=== PATIENT | female | born 1995 | race Hispanic/Latino ===

== ENCOUNTER 2022-11-12 12:54 | Emergency (ER) | payer OTHER ==
[~2022-11-12] VITALS: Ht 167.6 cm; Wt 118.8 kg
[2022-11-12 14:26] LABS: BASOPHILS % (AUTO) 0.3 % (0.0-5.0); EOSINOPHILS % (AUTO) 0.4 % (0.0-8.0); HEMATOCRIT 34.6 % (36-48); LYMPHOCYTES % (AUTO) 21.3 % (21.0-51.0); MEAN CORPUSCULAR HEMOGLOBIN 31.8 pg (27.0-33.0); MEAN CORPUSCULAR VOLUME 90.8 fL (79-99); MONOCYTES % (AUTO) 4.5 % (3.0-13.0); PLATELET COUNT (AUTO) 260 K/uL (130-400); RED BLOOD CELL COUNT(AUTO) 3.81 MIL/uL (4.00-5.50); RED CELL DISTRIBUTION WIDTH 13.6 % (11.0-15.5); WHITE BLOOD COUNT (AUTO) 10.6 K/uL (4.8-10.8)
[2022-11-12 14:29] LABS: APPEARANCE,URINE CLEAR (CLEAR); BILIRUBIN,URINE NEGATIVE (NEGATIVE); COLOR,URINE COLORLESS (YELLOW); GLUCOSE, URINE (UA) NEGATIVE (NEGATIVE); KETONES,URINE NEGATIVE (NEGATIVE); LEUKOCYTE ESTERASE ,URINE NEGATIVE Leu/uL (NEGATIVE); NITRATE,URINE NEGATIVE (NEGATIVE); OCCULT BLOOD,URINE NEGATIVE (NEGATIVE); PROTEIN,URINE NEGATIVE (NEGATIVE); UROBILINOGEN,URINE 0.2 mg/dL (0.2-1.0)
[2022-11-12] MEDS ORDERED: ACETAMINOPHEN 500 MG TABLET PO ONE (14:30)
[2022-11-12 14:40] LABS: CREATININE 0.6 mg/dL (0.5-1.5); POTASSIUM 3.6 mmol/L (3.5-5.1)
[2022-11-12 14:44] LABS: ALBUMIN 2.5 g/dL (3.5-5.0); TOTAL PROTEIN, SERUM 7.1 g/dL (6.0-8.3)
[2022-11-12] MEDS ORDERED: ACET-66 PO (15:48)
[2022-11-12 15:50] VITALS: BP 128/74
== END 2022-11-12 15:57 | disposition home or self-care (01) ==
LOC: EDH 12:54
DX: O26.891 Other specified pregnancy related conditions, first trimester (principal); R10.30 Lower abdominal pain, unspecified; Z3A.17 17 weeks gestation of pregnancy; Z90.49 Acquired absence of other specified parts of digestive tract
CPT/HCPCS: 36415; 76810; 80053; 81003; 84702; 85025

== ENCOUNTER 2024-07-14 16:18 | Emergency (ER) | payer SELFPAY ==
[~2024-07-14] VITALS: Ht 165.1 cm; Wt 136.5 kg
[~2024-07-14 16:18] MED LIST: ACET-66 PO
[2024-07-14 17:37] LABS: BILIRUBIN,URINE NEGATIVE (NEGATIVE); COLOR,URINE YELLOW (YELLOW); GLUCOSE, URINE (UA) NEGATIVE (NEGATIVE); KETONES,URINE 5 mg/dL (NEGATIVE); LEUKOCYTE ESTERASE ,URINE 75 Leu/uL (NEGATIVE); NITRATE,URINE NEGATIVE (NEGATIVE); OCCULT BLOOD,URINE NEGATIVE (NEGATIVE); PROTEIN,URINE 10 mg/dL (NEGATIVE); UROBILINOGEN,URINE 0.2 mg/dL (0.2-1.0)
[2024-07-14 17:38] LABS: ADD UA MICROSCOPIC YES; APPEARANCE,URINE HAZY (CLEAR)
[2024-07-14 17:41] LABS: BACTERIA,URINE RARE /HPF (None Seen); MUCUS,URINE RARE LPF (None Seen); SQUAMOUS EPITHELIAL CELL,UR MOD /HPF (0-2)
[2024-07-14 18:16] LABS: BASOPHILS # (AUTO) 0.03 K/uL (0.00-0.20); BASOPHILS % (AUTO) 0.3 % (0.0-5.0); EOSINOPHILS # (AUTO) 0.07 K/uL (0.00-0.70); EOSINOPHILS % (AUTO) 0.7 % (0.0-8.0); HEMATOCRIT 34.4 % (36-48); IMMATURE GRANULOCYTE ABSOLUTE 0.05 K/uL (0-1); LYMPHOCYTES # (AUTO) 2.5 K/uL (1.0-4.8); LYMPHOCYTES % (AUTO) 25.5 % (21.0-51.0); MEAN CORPUSCULAR HEMOGLOBIN 30.6 pg (27.0-33.0); MEAN CORPUSCULAR HGB CONC 34.6 g/dL (32.0-36.0); MEAN CORPUSCULAR VOLUME 88.4 fL (79-99); MONOCYTES # (AUTO) 0.5 K/uL (0.1-1.0); MONOCYTES % (AUTO) 5.1 % (3.0-13.0); NEUTROPHILS # (AUTO) 6.6 K/uL (1.8-7.7); NEUTROPHILS % (AUTO) 67.9 % (40.0-77.0); PLATELET COUNT (AUTO) 234 K/uL (130-400); RED BLOOD CELL COUNT(AUTO) 3.89 MIL/uL (4.00-5.50); RED CELL DISTRIBUTION WIDTH 13.6 % (11.0-15.5); WHITE BLOOD COUNT (AUTO) 9.7 K/uL (4.8-10.8)
[2024-07-14 18:24] LABS: CREATININE 0.6 mg/dL (0.5-1.0); POTASSIUM 3.6 mmol/L (3.5-5.1)
[2024-07-14] MEDS ORDERED: CEPH250 PO (19:13)
[2024-07-14] MEDS: acetaMINOPHEN 500 MG TABLET PO ONE (19:16)
[2024-07-14] MEDS: cefTRIAXone 1G VIAL IM ONE (19:17)
[2024-07-14 19:31] VITALS: BP 134/62; PULSE 88; RESP 18; TEMP 97.9; O2SAT 97
== END 2024-07-14 19:33 | disposition home or self-care (01) ==
LOC: EDH 16:18
DX: O26.892 Other specified pregnancy related conditions, second trimester (principal); S39.012A Strain of muscle, fascia and tendon of lower back, initial encounter; R10.2 Pelvic and perineal pain; O23.42 Unspecified infection of urinary tract in pregnancy, second trimester; N39.0 Urinary tract infection, site not specified; Z3A.14 14 weeks gestation of pregnancy; Z90.49 Acquired absence of other specified parts of digestive tract; X58.XXXA Exposure to other specified factors, initial encounter; Y93.89 Activity, other specified; Y92.89 Other specified places as the place of occurrence of the external cause; Y99.8 Other external cause status
CPT/HCPCS: 99285; 76805; 80048; 84702; 85025; 87086; 81001; 36415; 96372; J0696

== ENCOUNTER 2024-08-15 18:43 | Observation (INO) | payer SELFPAY ==
[~2024-08-15] VITALS: Ht 165.1 cm; Wt 136.5 kg
[~2024-08-15 18:43] MED LIST changes: +CEPH250 PO
[2024-08-15 19:35] LABS: ADD UA MICROSCOPIC NO; APPEARANCE,URINE CLEAR (CLEAR); BILIRUBIN,URINE NEGATIVE (NEGATIVE); COLOR,URINE LIGHT-YELLOW (YELLOW); GLUCOSE, URINE (UA) NEGATIVE (NEGATIVE); KETONES,URINE NEGATIVE (NEGATIVE); LEUKOCYTE ESTERASE ,URINE NEGATIVE Leu/uL (NEGATIVE); NITRATE,URINE NEGATIVE (NEGATIVE); OCCULT BLOOD,URINE NEGATIVE (NEGATIVE); PH,URINE 5.5 (5.0-8.0); PROTEIN,URINE NEGATIVE (NEGATIVE); UROBILINOGEN,URINE 0.2 mg/dL (0.2-1.0)
[2024-08-15 19:59] LABS: BASOPHILS # (AUTO) 0.03 K/uL (0.00-0.20); BASOPHILS % (AUTO) 0.3 % (0.0-5.0); EOSINOPHILS # (AUTO) 0.09 K/uL (0.00-0.70); EOSINOPHILS % (AUTO) 0.8 % (0.0-8.0); HEMATOCRIT 36.5 % (36-48); IMMATURE GRANULOCYTE ABSOLUTE 0.08 K/uL (0-1); LYMPHOCYTES # (AUTO) 2.5 K/uL (1.0-4.8); LYMPHOCYTES % (AUTO) 22.3 % (21.0-51.0); MEAN CORPUSCULAR HEMOGLOBIN 31.1 pg (27.0-33.0); MEAN CORPUSCULAR HGB CONC 33.7 g/dL (32.0-36.0); MEAN CORPUSCULAR VOLUME 92.4 fL (79-99); MONOCYTES # (AUTO) 0.5 K/uL (0.1-1.0); MONOCYTES % (AUTO) 4.7 % (3.0-13.0); NEUTROPHILS # (AUTO) 7.8 K/uL (1.8-7.7); NEUTROPHILS % (AUTO) 71.2 % (40.0-77.0); PLATELET COUNT (AUTO) 240 K/uL (130-400); RED BLOOD CELL COUNT(AUTO) 3.95 MIL/uL (4.00-5.50); RED CELL DISTRIBUTION WIDTH 13.7 % (11.0-15.5)
--- NOTE | 2024-08-15 20:11 | ERN ---
ED Note History of Present Illness Stated Complaint: 19 WKS PREG, VAGINAL DISCOMFORT Chief Complaint: OB<20 weeks gest. Time Seen by MD: 18:44 Time Seen by Midlevel: 18:44 Dictation: The patient is a 29-year-old female with history of , who presents to the emergency department with complaints of a week of clear vaginal discharge and suprapubic pressure onset two days ago. Patient reports being 19 weeks , patient is doctor Arthur Webb. G 4. Denies any fevers, vomiting, diarrhea, constipation, vaginal bleeding Allergies: Coded Allergies: No Known Allergies (Unverified Allergy, Unknown, 11/12/22) Home Meds Active Scripts Cephalexin Monohydrate (Keflex) 250 Mg Cap, 1 CAP PO QID for 7 Days, #28 CAP 0 Refills Prov:TERRIE DE LOS SANTOS 07/14/24 Acetaminophen (Acetaminophen) 500 Mg Tablet, 500 MG PO Q4PRN for 5 Days, #15 TAB Prov:DENZEL ANDREWS 11/12/22 Past Medical History Past Medical History: Hypertension Surgical History: Cholecystectomy, LMP: Apr 02, 2024 : 4 Para: 3 Aborts: 1 RN Note Reviewed/Agreed w/PFSH: Yes Review of System Dictation Constitutional: Negative for fever,chills, and weight loss Eyes: Negative for injury, pain,redness, and discharge ENT: Negative for injury,pain or swelling Cardiovascular: Negative for chest pain, palpitations, and edema Respiratory: Negative for shortness of breath, cough, and wheezing, Abdomen/GI: Negative for nausea, vomiting, diarrhea, and constipation suprapubic pain Back: Negative for injury and pain : Negative for injury, bleeding and discharge . Clear discharge MS/Extremity: Negative for injury and deformity Skin: Negative for rash, and discoloration Neuro: Negative for headache, weakness, numbness, tingling, and seizure Psych: Negative for suicide ideation, homicidal ideation, and hallucinations Initial Vital Sign VS Vital Signs Date Time Temp Pulse Resp B/P (MAP) Pulse Ox O2 Delivery O2 Flow Rate FiO2 08/15/24 19:07 98.2 89 20 128/78 97 08/15/24 20:05 Room Air* 0 21 Physical Exam Dictation General: awake, alert, NAD Head/Face: Normocephalic, atraumatic Eyes: PERRL, EOMI, vision at baseline ENT: oral cavity clear, TMs clear, no signs of infection Neck: Trachea midline, supple, no nuchal rigidity Cardiovascular: RRR, normal S1/S2, No MRGs, no JVD Respiratory: CTAB, no respiratory distress, No rales or wheezes Abdomen: Soft, non-tender, non-distended, normal bowel sounds, no guarding or rebound. Skin: Warm, dry, normal turgor, no rash MS/Extremity: Pulses equal, no cyanosis, neurovascular intact, FROM Neuro: COAx4, GCS 15, strength 5/5, CN 2-12 intact, normal cerebellar exam, normal gait, Psych: Normal behavior, mood, and affect normal Results (Laboratory/Radiology) Laboratory/Radiology Laboratory Tests Test 08/15/24 19:20 08/15/24 19:47 Urine Color LIGHT-YELLOW (YELLOW) Urine Appearance CLEAR (CLEAR) Urine pH 5.5 (5.0-8.0) Urine Specific Cullen 1.025 (1.001-1.031) Urine Protein NEGATIVE mg/dL (NEGATIVE) Urine Glucose (UA) NEGATIVE mg/dL (NEGATIVE) Urine Ketones NEGATIVE mg/dL (NEGATIVE) Urine Occult Blood NEGATIVE (NEGATIVE) Urine Nitrate NEGATIVE (NEGATIVE) Urine Bilirubin NEGATIVE mg/dL (NEGATIVE) Urine Urobilinogen 0.2 mg/dL (0.2-1.0) Urine Leukocyte Esterase NEGATIVE Ciara/uL White Blood Count 11.0 K/uL (4.8-10.8) H Red Blood Count 3.95 MIL/uL (4.00-5.50) L Hemoglobin 12.3 g/dL (12.0-16.0) Hematocrit 36.5 % (36-48) Mean Corpuscular Volume 92.4 fL (79-99) Mean Corpuscular Hemoglobin 31.1 pg (27.0-33.0) Mean Corpuscular Hemoglobin Concent 33.7 g/dL (32.0-36.0) Red Cell Distribution Width 13.7 % (11.0-15.5) Platelet Count 240 K/uL (130-400) Mean Platelet Volume 11.6 fL (7.5-10.5) H Immature Granulocyte % (Auto) 0.7 % (0-1) Neutrophils (%) (Auto) 71.2 % (40.0-77.0) Lymphocytes (%) (Auto) 22.3 % (21.0-51.0) Monocytes (%) (Auto) 4.7 % (3.0-13.0) Eosinophils (%) (Auto) 0.8 % (0.0-8.0) Basophils (%) (Auto) 0.3 % (0.0-5.0) Neutrophils # (Auto) 7.8 K/uL (1.8-7.7) H Lymphocytes # (Auto) 2.5 K/uL (1.0-4.8) Monocytes # (Auto) 0.5 K/uL (0.1-1.0) Eosinophils # (Auto) 0.09 K/uL (0.00-0.70) Basophils # (Auto) 0.03 K/uL (0.00-0.20) Absolute Immature Granulocyte (auto 0.08 K/uL (0-1) Nucleated Red Blood Cells 0.0 % (0.0-0.19) Sodium Level 134 mmol/L (136-145) L Potassium Level 3.4 mmol/L (3.5-5.1) L Chloride Level 100 mmol/L (101-111) L Carbon Dioxide Level 26 mmol/L (21-32) Blood Urea Nitrogen 9 mg/dL (7-18) Creatinine 0.7 mg/dL (0.5-1.0) Glomerular Filtration Rate Calc 121 mL/min (>90) Random Glucose 90 mg/dL (70-105) Total Calcium 8.9 mg/dL (8.5-10.1) Human Chorionic Gonadotropin, Quant 38786 mIU/mL (0-5) H REASON: VAGINAL BLEEDING ORDERING PHYSICIAN: FLACA JOHNS PROCEDURE: OB >14 - US OB >14 WEEKS US OB >14 WEEKS REASON: VAGINAL BLEEDING COMPARISON: None TECHNIQUE: Routine OB sonogram was performed. FINDINGS: There is a single fetus in cephalic presentation with positive motion and heartbeat, 139 BPM. Composite gestational age is 19 weeks 4 days. Placenta is posterior and grade 1 with KELY 10.3 cm. Estimated weight is 303 g. There is normal-appearing anatomy. IMPRESSION: 1. Single fetus cephalic presentation composite gestational age 19 weeks 4 days. Labs Reviewed?: Yes ED Course ED Course Orders Procedure Category Date Status Time Cbc With Differential LAB 08/15/24 Complete 19:24 Abo/Rh BBK 08/15/24 Complete 19:24 Hcg,Quantitative LAB 08/15/24 Complete 19:24 Us Ob >14 Weeks US 08/15/24 Resulted 19:24 0.9%Nacl 1000ml (Ns PHA 08/15/24 Complete 1000ml) 19:30 Acetaminophen 325 Tab PHA 08/15/24 Complete (Tylenol 325mg Tab 19:30 Basic Metabolic Panel LAB 08/15/24 Complete 19:24 Urinalysis Profile LAB 08/15/24 Complete 19:24 Trge/Assess CPOE 08/15/24 Transmitted Matrnl/Ftl Status 21:53 Obt Vs Apply Ext CPOE 08/15/24 Transmitted Monitor 21:53 Triage Vaginal Exam CPOE 08/15/24 Transmitted 21:53 Note Status Of CPOE 08/15/24 Transmitted Membranes 21:53 Notify Health Care CPOE 08/15/24 Transmitted Provider 21:53 Place Pt Under Obs ADM 08/15/24 Transmitted For Obs Svc 21:53 *General Dc DS 08/15/24 Transmitted Instructions 22:42 Nitrazine Check Ph LABOR 08/15/24 Transmitted Testing 22:20 Current Medications Medications (Trade) Dose Ordered Sig/Vish Route PRN Reason Start Time Stop Time Status Last Admin Dose Admin Acetaminophen (TYLenol 325MG TAB) 650 mg ONCE ONCE PO 08/15/24 19:30 08/15/24 19:31 DC 08/15/24 20:40 Sodium Chloride 1,000 ml @ 0 mls/hr ONCE ONCE IV 08/15/24 19:30 08/15/24 19:31 DC 08/15/24 20:40 Vital Signs Date Time Temp Pulse Resp B/P (MAP) Pulse Ox O2 Delivery O2 Flow Rate FiO2 08/15/24 21:17 98.4 75 18 136/75 98 Room Air* 0 08/15/24 20:05 98.2 71 20 142/68 99 Room Air* 0 08/15/24 19:07 98.2 89 20 128/78 97 Medical Decision Making MDM The patient is a 29-year-old female with history of , who presents to the emergency department with complaints of a week of clear vaginal discharge and suprapubic pressure onset two days ago. Patient reports being 19 weeks , patient is doctor Arthur Webb. G 4. Denies any fevers, vomiting, diarrhea, constipation, vaginal bleeding CBC showed mild leukocytosis, no anemia, chemistry showed mild hyponatremia, hypochloremia, hypokalemia, [place] [id number], urinalysis unremarkable. Ultrasound revealed single fetus cephalic presentation composite gestational age 19 weeks four days. Patient will go to L& D for further monitoring Differential diagnosis: Threatened , UTI,, placenta previa Rationale: Tests considered and ordered secondary to shared decision making include: labs, ECG and radiology . There are no social concerns with this patient. Patient's prior external medical records from other ER visits were reviewed by me as indicated. Prior testing and results from previous visits were reviewed. Prior tests were taken into account with medical decision making and resource utilization, independent historian/historians were used to obtain complete medical history. I independently interpreted the test that were performed, results were reviewed by me and considered findings on radiology if ordered. Medical management and examination interpretation discussions were had by me w ith other qualified healthcare professionals as indicated for the patient's care. DX & DISP Disposition: Observation Decision to Admit Date: Aug 15, 2024 Decision to Admit Time: 21:10 Departure Impression: Primary Impression: Abdominal pain during Additional Impression: 19 weeks gestation of Condition: Stable Referrals: ANH EVERETT MD (PCP) I have reviewed the case, and I agree with, Diagnosis and Plan ATTESTATION BY PHYSICIAN I PERFORMED THE SUBSTANTIVE PORTION OF THE VISIT. I HAVE REVIEWED AND PERSONALLY MADE AND APPROVED THE MANAGEMENT PLAN THAT IS DOCUMENTED IN THE NOTE BY MYSELF FOR THE A PP. I ACKNOWLEDGED FOR RESPONSIBILITY FOR THE PATIENT'S MANAGEMENT PLAN. FLACA JOHNS Aug 15, 2024 20:11 JOHNNA CARVAJAL MD Aug 16, 2024 05:17
[2024-08-15 20:24] LABS: CREATININE 0.7 mg/dL (0.5-1.0); POTASSIUM 3.4 mmol/L (3.5-5.1)
[2024-08-15] MEDS: acetaMINOPHEN 325 MG TAB PO ONE (20:40)
[2024-08-15] MEDS: 0.9%NACL 1000ML 1,000 ML IV ONE (20:40)
--- NOTE | 2024-08-15 20:40 | HMCIMG ---
US OB >14 WEEKS REASON: VAGINAL BLEEDING COMPARISON: None TECHNIQUE: Routine OB sonogram was performed. FINDINGS: There is a single fetus in cephalic presentation with positive motion and heartbeat, 139 BPM. Composite gestational age is 19 weeks 4 days. Placenta is posterior and grade 1 with KELY 10.3 cm. Estimated weight is 303 g. There is normal-appearing anatomy. IMPRESSION: 1. Single fetus cephalic presentation composite gestational age 19 weeks 4 days.
--- NOTE | 2024-08-15 21:16 | NUR ---
PATIENT REPORT GIVEN TO TAYLOR KONG
--- NOTE | 2024-08-15 21:16 | NUR ---
PER ED MD PATIENT IS MEDICALLY CLEARED TO GO TO OB/L AND D UNIT
[2024-08-15 21:17] VITALS: BP 136/75; PULSE 75; RESP 18; TEMP 98.4; O2SAT 98
== END 2024-08-15 22:45 | disposition home or self-care (01) ==
LOC: EDH 18:43 → LDH 21:49
PROVIDERS: ADMIT Internal Medicine; ATTEND Internal Medicine
DX: O13.2 Gestational [pregnancy-induced] hypertension without significant proteinuria, second trimester (principal); O26.892 Other specified pregnancy related conditions, second trimester; N89.8 Other specified noninflammatory disorders of vagina; Z3A.20 20 weeks gestation of pregnancy; Z79.899 Other long term (current) drug therapy; Z98.890 Other specified postprocedural states
CPT/HCPCS: 99284; 76805; 80048; 84702; 85025; 86900; 86901; 81003; 36415; 82120; G0378; J7030; 59025